=== PATIENT | male | born 1990 ===

== ENCOUNTER 2024-03-17 11:49 | Emergency (ER) | payer SELFPAY ==
--- NOTE | ~2024-03-17 | XR_ITS ---
CLINICAL HISTORY: back pain 3 views lumbar spine Comparison: None Findings: No fracture or acute malalignment. There is mild retrolisthesis of L5 with respect to S1 with loss of disc space posteriorly due to sacral angulation. IMPRESSION: No acute findings. Chronic appearing changes at L5-S1. This document has been electronically signed by: Darrell Vasquez MD on 03/17/2024 12:37:02
[2024-03-17 12:02] VITALS: BP 119/74; PULSE 78; RESP 18; TEMP 36.6; O2SAT 98; BMI 28.1
--- NOTE | 2024-03-17 12:05 | ED.GENADULT ---
HPI - General Adult General Chief complaint: Back Pain/Injury Stated complaint: Back Pain Time Seen by Provider: 03/17/24 12:42 Source: patient Mode of arrival: ambulatory Limitations: no limitations History of Present Illness ED Provider: Aristeo Michaels HPI narrative: 33-year-old male no past medical history presents to ED for lower back pain that is worse with movement without any trauma. 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 Patient denies any abdominal pain, nausea, vomiting, flank pain, fever, chills, any genitourinary symptoms. Patient denies any abdominal pain nausea vomiting. Patient denies any urinary/bowel incontinence. Patient denies any history of IV drug use or history of immunocompromise diseases. Related Data Previous Rx's ?Medication ?Instructions ?Recorded cyclobenzaprine 10 mg tablet 10 mg PO BEDTIME PRN muscle spasm 03/17/24 #10 tabs naproxen 500 mg tablet 500 mg PO BID PRN pain #14 tabs 03/17/24 prednisone 20 mg tablet 40 mg (2 x 20 mg) PO DAILY 5 days 03/17/24 #10 tabs Allergies Allergy/AdvReac Type Severity Reaction Status Date / Time No Known Allergies Allergy Verified 03/17/24 12:03 Review of Systems Review of Systems: low back pain Yes all other systems are reviewed and are negative PMFSH Social History Social History Advance Directives: No Advance Directives Information Provided: No Do you have a plan to hurt others: No Plan Physical Exam ED Vital Signs: Vital Signs - 24 hr 03/17/24 12:02 03/17/24 13:37 Temperature 98 F 98 F Pulse Rate 78 78 Respiratory Rate 18 18 Blood Pressure 119/74 119/74 Pulse Oximetry 98 98 Oxygen Delivery Method Room Air Room Air BMI result Body Mass Index 28.1 Const General: cooperative, healthy appearing, comfortable, no acute distress, well developed, alert, awake and Physically active Orientation/consciousness: patient oriented x3 HENMT Head: Yes normal to inspection, Yes No palpable skull fracture present, Yes normocephalic and Yes atraumatic Eyes General: appearance normal, both eyes and all related structures Neck Neck: Yes normal visual inspection, Yes full ROM, Yes no lymphadenopathy, Yes no meningeal signs, Yes trachea midline, Yes supple, No anterior neck swelling and No tender Chest Chest palpation & inspection: normal inspection of the chest and normal palpation of entire chest wall Resp Effort & Inspection: normal respiratory effort and able to speak in complete sentences Auscultation: clear to auscultation bilaterally Cardio Jugular venous distension: no JVD Heart sounds: S1 normal heart sound present and S2 normal heart sound present GI Inspection: Yes normal to inspection Palpation (GI): Soft to palpation, not firm, nontender, no guarding and not rigid General: Yes no CVA tenderness Back/Spine/Pelvis Back: no CVA tenderness and back tenderness (lumbar spine) Skin General skin exam: no rashes or lesions noted, elasticity normal and turgor normal Neuro General: patient oriented x3, gait normal, tone normal, moves all extremities, Normal light touch and pain sensation, no meningeal signs, no focal motor deficits, CN's II-XI intact bilaterally and normal sensation to monofilament Extrem General: Yes normal to inspection, Yes full ROM and Yes capillary refill normal Psych Appearance: grossly normal, well kempt and not disheveled Course Course Course Narrative: RME: 33-year-old male presents to ED for lower back pain that is worse on movement for the past 2 weeks. Patient denies any trauma. 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 Patient denies any abdominal pain, dysuria, hematuria, or flank pain. Lumbar spine x-ray ordered. Medical Decision Making Medical Decision Making MDM Narrative: Turn your heart presents to ED for low back pain. X-ray shows chronic arthritic changes. Negative for any fractures. Not suspecting cauda equinus or epidural abscess. Not suspecting kidney stones, pyelonephritis, testicular torsion, appendicitis, epididymitis, osteomyelitis, or any other life-threatening etiology. Patient explained worrisome signs and informed to return to the ED immediately. Differential Diagnosis Differential Diagnoses: The differential diagnosis associated with the presentation includes (Fracture, herniated disc, lumbar radiculopathy) Admission/Observation Consideration of admission/observation: Escalation of care including admission/observation considered Independent Historian Clinical information obtained from an independent historian. History obtained from or confirmed by: Other (patient) Prescription Management I considered prescription management with: Pain Medication Discharge Plan Discharge Clinical Impression: Lumbar radiculopathy Patient Disposition: Home, Self-Care Instructions: Lumbar Radiculopathy (ED) Additional Instructions: Recommend follow up with the primary care provider for referral for physical therapy and possible MRI if symptoms does not improve. Return to the ED immediately for any urinary/bowel incontinence, severe back pain, abdominal pain, nausea, vomiting, flank pain, fever, chills, dysuria, hematuria, or any other concerning symptoms. CLINICAL HISTORY: back pain 3 views lumbar spine Comparison: None Findings: No fracture or acute malalignment. There is mild retrolisthesis of L5 with respect to S1 with loss of disc space posteriorly due to sacral angulation. IMPRESSION: No acute findings. Chronic appearing changes at L5-S1. This document has been electronically signed by: Darrell Vasquez MD on 03/17/2024 12:37:02 Dictated By: Darrell Vasquez MD Signed By: <Electronically signed by Darrell Vasquez MD in OV> 03/17/24 1237 DD/ 1237 TD/TT: 03/17/24 1237 Cleaner And Preparer: Prescriptions: New naproxen 500 mg tablet 500 mg PO BID PRN (Reason: pain) Qty: 14 0RF prednisone 20 mg tablet 40 mg PO DAILY 5 Days Qty: 10 0RF cyclobenzaprine 10 mg tablet 10 mg PO BEDTIME PRN (Reason: muscle spasm) Qty: 10 0RF Rx Instructions: Side effects of drowsiness. Do not take work or driving Stand Alone Forms: Work/School Release Interventions: ED Discharge Assessment Last Done: 03/17/24 13:37 Discharge Date/Time: 03/17/24 13:37 Print Language: Latvian
--- OUTSIDE RECORDS SUMMARY | 2024-03-17 13:28 | XMS_ITS | Clinical Summary ---
Author Organization [facility] [employer] [facility] ity Address [address] [place] [address] Care Team Providers Care Stripper Black And White Name Role Phone Unavailable Primary Care Provider Unavailabl e Social History Tobacco Use Types Packs/Day Years Used Date Smoking Tobacco: Never Assessed Sex and Gender Information Value Date Recorded Sex Assigned at Not on file Gender Identity Not on file Sexual Orientation Not on file Plan of Treatment Health Maintenance Due Date Last Done Comments DTaP,Tdap,and Td Vaccines (1 - Tdap) 2009 Hepatitis B Vaccines (1 of 3 - 19+ 3-dose series) 2009 COVID-19 Vaccine (2023-2 5 season) 2023 Influenza Vaccine (#1) 2023 Depression Screening 11/23/2023 HIV Screening 11/23/2023 Hepatitis C Screening 11/23/2023 Social Influencers of Health Screening 11/23/2023 HIB Vaccines Aged Out No longer eligi ble based on patient's age to complete this topic HPV Vaccines Aged Out No longer eligi ble based on patient's age to complete this topic Hepatitis A Vaccines Aged Out No long er eligible based on patient's age to complete this topic IPV Vaccines Aged Out No longer eligi ble based on patient's age to complete this topic MMR Vaccines Aged Out No longer eligi ble based on patient's age to complete this topic Meningococcal ACWY Vaccine Aged Out N o longer eligible based on patient's age to complete this topic Pneumococcal Vaccine: Pediat rics (0 to 5 Years) and At-Risk Patients (6 to 64 Years) Aged Out No longer eligible b ased on patient's age to complete this topic RSV Immunization Patients Un ryan 20 months Aged Out No longer eligible b ased on patient's age to complete this topic Varicella Vaccines Aged Out No longer eligible based on patient's age to complete this topic
--- OUTSIDE RECORDS SUMMARY | 2024-03-17 13:28 | XMS_ITS | Clinical Summary ---
Author Organization [facility] Address [address] [place] [id number] Care Team Providers Care Systems Software Manager Name Role Phone [place], [facility] Primary Care Pr ovider Allergies No known active allergies Medications Medication Sig Dispensed Refills Start Date End Date Status butalbital-acetamino phen-caffeine (FioriCET, ESGIC) 50-325-40 mg tablet Take 1-2 tablets by mouth 4 times daily (every 6 hours) as needed for migraine or pain. 30 tablet 04/23/2020 Active acetaminophen (TYLENOL) 500 MG tablet Take 2 tablets (1,000 mg total) by mouth 3 times daily (every 8 hours) as needed for mild pain or moderate pain (pain). 20 tablet 07/01/2020 Active aspirin enteric coated (aspirin enteric coated) 81 MG EC tabletIndications:Cl osed displaced fracture of shaft of left clavicle with routine healing, subsequent encounter Take 1 tablet (81 mg total) by mouth daily. 14 tablet 07/14/2020 Active oxyCODONE (ROXICODONE) 5 MG immediate release tabletIndications:Cl osed fracture of olecranon process of left ulna, initial encounter Take 1 tablet (5 mg total) by mouth every 4 (four) hours as needed for severe pain. Max Daily Amount: 30 mg 20 tablet 07/21/2020 Active famotidine (PEPCID) 20 MG tablet Take 1 tablet (20 mg total) by mouth 2 (two) times a day. 20 tablet 11/11/2020 Active sulfamethoxazole-tri methoprim (BACTRIM DS,SEPTRA DS) 800-160 MG per tablet Take 1 tablet by mouth 2 (two) times a day. 14 tablet 09/27/2021 Active doxycycline (VIBRAMYCIN) 100 MG capsule Take 1 capsule (100 mg total) by mouth 2 (two) times a day. 14 capsule 11/15/2021 Active Active Problems Problem Noted Date Diagnosed Date Fracture of unspecified part of left clavicle, initial encounter for closed fracture 07/21/2020 Closed fracture of left olec ranon process with routine healing 07/21/2020 Immunizations Name Administration Dates Next Due Tdap 07/01/2020 Social History Tobacco Use Types Packs/Day Years Used Date Smoking Tobacco: Former Smokeless Tobacco: Never Alcohol Use Standard Drinks/Week Comments Yes 0 (1 standard drink = 0.6 oz pur e alcohol) Sex and Gender Information Value Date Recorded Sex Assigned at Not on file Gender Identity Not on file Sexual Orientation Not on file Last Filed Vital Signs Vital Sign Reading Time Taken Comments Blood Pressure 135/90 11/15/2021 11:41 AM EDT Pulse 63 11/15/2021 11:41 AM EDT Temperature 36 ??C (96.8 ??F) 11/15/2021 11:41 AM EDT Respiratory Rate 18 11/15/2021 11:41 AM EDT Oxygen Saturation 99% 11/15/2021 11:41 AM EDT Inhaled Oxygen Concentration - - Weight 126 kg (278 lb) 11/10/2020 11:10 AM EDT Height 190.5 cm (6' 3 ) 11/10/2020 11:10 AM EDT Body Mass Index 34.75 11/10/2020 11:10 AM EDT Plan of Treatment Health Maintenance Due Date Last Done Comments Hepatitis C Virus Screening 1990 HIV Screening 07/01/2003 Hepatitis B Vaccines (1 of 3 - 19+ 3-dose series) 2009 Influenza Vaccine 09/14/2023 COVID-19 Vaccine ( - 2023-2 5 season) 2023 DTaP/Tdap/Td Vaccines (2 - T d or Tdap) 07/01/2030 07/01/2020 HPV Vaccines Aged Out No longer eligi ble based on patient's age to complete this topic Pneumococcal Vaccine: Pediat brunilda (0-5 Years) and At-Risk Patients (6 to 49 Years) Aged Out No longer eligible b ased on patient's age to complete this topic Medical Devices Implanted Type Area Artificial Cherry Maker Device Identifier Shelf Expiration Date Model / Serial / Lot Apl-Pup-[id number] Plate Ulna Left Proximal 73x5.7x10mm Bone - [id number] Implanted:Qty: 1 on 07/14/2020 by Miguelito Garza MD at Plate Left: [employer] [id number] / / [id number] Screw Bone Olcrn 20mm Ti 3.5mm Lock Multithread - [id number] Implanted:Qty: 1 on 07/14/2020 by Miguelito Garza MD at Screw Left: [employer] [id number] -[id number] / / [id number] Screw Bone Olcrn 26mm Ti 3.5mm Lock Multithread - [id number] Implanted:Qty: 1 on 07/14/2020 by Miguelito Garza MD at Screw Left: [employer] [id number] -[id number] / / [id number] Screw Bone Olcrn 16mm Ti 3.5mm Compression Multithread - [id number] Implanted:Qty: 1 on 07/14/2020 by Miguelito Garza MD at Screw Left: [employer] [id number] -TS / / [id number] Screw Bone Olcrn 22mm Ti 3.5mm Compression Multithread - [id number] Implanted:Qty: 1 on 07/14/2020 by Miguelito Garza MD at Screw Left: [employer] [id number] -[id number] / / [id number] Screw Bone Matt 26mm Ti 3.5mm - [id number] Implanted:Qty: 1 on 07/14/2020 by Miguelito Garza MD at Screw Left: [employer] [id number] -[id number] / / Screw Multi Thread Compression 3.5x20 Implanted:Qty: 1 on 07/14/2020 by Miguelito Garza MD at Left: [employer] [id number] -[id number] / / Screw Multi Thread Compression 3.5 X 55mm Implanted:Qty: 1 on 07/14/2020 by Miguelito Garza MD at Left: [employer] [id number] -[id number] / / Advance Directives * Full Code (Latest Code Status on File) Date Activated Date Inactivated Comments 07/14/2020 6:22 AM 11/11/2020 9:22 AM Healthcare Agents on File Name Relationship Healthcare Agent Relationshi p Communication Bethel Borges Parent 4. Next of Kin ( Spouse, Adult Child, Parent, Adult Sibling, Grandparent) Care Teams Systems Software Manager Relationship Specialty Start Date End Date IslipJerrell MD [address] [place] [id number] PCP - General Family Medicine 04/10/20
[2024-03-17 13:37] VITALS: BP 119/74; PULSE 78; RESP 18; TEMP 36.6; O2SAT 98
== END 2024-03-17 13:37 | disposition home or self-care (01) ==
PROVIDERS: Emergency Provider Emergency Medicine
DX: M54.16 Radiculopathy, lumbar region (principal)
CPT/HCPCS: 72100; 99282; 99283

== ENCOUNTER → 2024-03-17 12:04 | Outpatient (BNV) | payer SELFPAY | PROVIDERS: Emergency Provider Emergency Medicine; Visit Provider Radiology Vascular & Interventional Radiology | DX: M54.50 Low back pain, unspecified (principal) | CPT/HCPCS: 72100 ==